=== PATIENT | female | born 1945 | race Caucasian/White ===

== ENCOUNTER 2017-07-07 11:17 | Inpatient (IN) | payer OTHER ==
[~2017-07-07] VITALS: Ht 162.6 cm; Wt 120.0 kg
[~2017-07-07 11:17] MED LIST: GLUCOPHAGE500 MG PO; KLONOPIN0.5 M1 PO; LANTUS 3 M100 UNITS1 SC; METFORMIN HCL500 MG PO; PERCOCET 5/31 TABLET PO; TRIBENZOR 40-11 EAC1 PO
[2017-07-07 11:48] LABS: EOSINOPHIL (%) 0.9 % (0-5); EOSINOPHIL COUNT 0.1 K/uL (0-0.3); HEMATOCRIT 40.9 % (36.0-46.0); IMMATURE GRANULOCYTE (%) 0.3 % (0.0-0.7); INSTRUMENT ABS NEUTROPHIL CT 4.6 K/uL; LYMPHOCYTE COUNT 1.4 K/uL (1.0-2.8); MCH 29.8 PG (29.0-34.0); MCHC 32.8 G/DL (30.0-36.0); MCV 90.9 FL (83-99); MONOCYTE (%) 7.3 % (3-12); MONOCYTE COUNT 0.5 K/uL (0-0.8); NEUTROPHIL (%) 69.9 % (45-76); NEUTROPHIL COUNT 4.6 K/uL (1.8-6.4); PLATELET COUNT 242 K/uL (156-360); RBC DIS.WIDTH-CV 13.4 % (11.8-14.6); RBC DIS.WIDTH-SD 44.8 % (39-53); WHITE BLOOD COUNT 6.6 K/uL (4.1-10.2)
[2017-07-07 11:54] LABS: INTER. NORMALIZED RATIO 1.1; PROTHROMBIN TIME 12.5 SEC (10.2-12.9)
[2017-07-07 11:57] LABS: PTT 25.4 SEC (25-37)
[2017-07-07 12:05] LABS: CHLORIDE 106 mEq/L (99-109); SODIUM 139 mEq/L (136-147)
[2017-07-07 12:06] LABS: GLUCOSE 315 mg/dL (70-99)
[2017-07-07 12:08] LABS: ANION GAP 10 MEQ/L (2-14)
[2017-07-07 12:09] LABS: TROP-I INTERPRETATION NEGATIVE; TROPONIN-I < 0.01 ng/mL (0.0-0.30)
[2017-07-07 12:10] LABS: GFR ESTIMATE (CALCULATED) 52 mL/min/
[2017-07-07 12:11] LABS: UREA NITROGEN (BUN) 21 mg/dL (9-23)
[2017-07-07] MEDS ORDERED: VALSARTAN160 MG PO (12:35)
[2017-07-07] MEDS ORDERED: TOPROL XL25 MG PO (12:36)
[2017-07-07] MEDS ORDERED: AMARYL2 MG PO (12:36)
[2017-07-07] MEDS ORDERED: LASIX40 MG PO (12:37)
[2017-07-07 14:35] VITALS: BP 159/91
[2017-07-07 16:42] LABS: POINT-OF-CARE METER ID UU13113781; POINT-OF-CARE USER ID ENVKC36
[2017-07-07 16:49] VITALS: BP 130/58
[2017-07-07 18:49] LABS: TROPONIN-I 5.29 ng/mL (0.0-0.30)
[2017-07-07 18:50] LABS: TROP-I INTERPRETATION POSITIVE
[2017-07-07 19:26] VITALS: BP 136/62
[2017-07-07 21:30] LABS: POINT-OF-CARE METER ID UU13113698
[2017-07-07 23:13] VITALS: BP 150/66
[2017-07-08 01:08] LABS: TROP-I INTERPRETATION POSITIVE
[2017-07-08 01:16] LABS: TROPONIN-I 7.44 ng/mL (0.0-0.30)
[2017-07-08 04:15] VITALS: BP 143/63
[2017-07-08 07:38] VITALS: BP 157/63
[2017-07-08 08:11] LABS: POINT-OF-CARE METER ID UU13113698; POINT-OF-CARE USER ID NUTSLF44
[2017-07-08 09:08] LABS: HEMATOCRIT 35.8 % (36.0-46.0); MCHC 32.4 G/DL (30.0-36.0); MCV 92.5 FL (83-99); PLATELET COUNT 211 K/uL (156-360); RBC DIS.WIDTH-CV 13.7 % (11.8-14.6); RBC DIS.WIDTH-SD 46.6 % (39-53); RED BLOOD COUNT 3.87 M/uL (3.80-5.20); WHITE BLOOD COUNT 5.9 K/uL (4.1-10.2)
[2017-07-08 09:28] LABS: Estimated Average Glucose 163 mg/dL (70-123); HEMOGLOBIN A1c (GLYCOHEMOGLOB) 7.3 % HGB (Below 5.7)
[2017-07-08 11:52] VITALS: BP 168/70
[2017-07-08 13:01] LABS: ALKALINE PHOSPHATASE 98 IU/L (3-129); ANION GAP 13 MEQ/L (2-14); CHLORIDE 112 MEQ/L (99-109); GFR ESTIMATE (CALCULATED) > 59 mL/min/; HDL CHOLESTEROL 42 MG/DL (Desirable>=50); LDL CHOLESTEROL 137 mg/dL (Desirable<100); MAGNESIUM 2.2 mg/dl (1.3-2.7); NON-HDL CHOLESTEROL 161 mg/dL (Desirable<160); POTASSIUM 4.4 MEQ/L (3.7-5.4); SAMPLE HEMOLYSIS CHECK 0; SAMPLE ICTERIC CHECK 0; SAMPLE LIPEMIA CHECK 0; SODIUM 143 MEQ/L (136-147); TOTAL BILIRUBIN 0.5 MG/DL (0.0-1.0); TOTAL CHOLESTEROL 203 mg/dL (Desirable<200); TRIGLYCERIDES 120 MG/DL (Normal: <150); UREA NITROGEN (BUN) 16 mg/dL (9-23)
[2017-07-08 13:03] LABS: GLUCOSE 132 mg/dL (70-99)
[2017-07-08 15:18] VITALS: BP 179/78
[2017-07-08 16:20] LABS: POINT-OF-CARE METER ID UU13113696
[2017-07-08 19:35] LABS: POINT-OF-CARE METER ID UU13113675; POINT-OF-CARE USER ID LABLCH83
[2017-07-08 23:13] VITALS: BP 150/66
[2017-07-09 01:45] LABS: POINT-OF-CARE METER ID UU13113698
[2017-07-09 04:15] VITALS: BP 143/63
[2017-07-09 05:56] LABS: EOSINOPHIL (%) 0.1 % (0-5); IMMATURE GRANULOCYTE (%) 0.7 % (0.0-0.7); IMMATURE GRANULOCYTE COUNT 0.1 K/uL; INSTRUMENT ABS NEUTROPHIL CT 5.5 K/uL; MCH 30.9 PG (29.0-34.0); MCHC 33.8 G/DL (30.0-36.0); MCV 91.6 FL (83-99); MEAN PLAT.VOLUME 10.3 uM^3 (9.5-12.4); MONOCYTE (%) 5.6 % (3-12); MONOCYTE COUNT 0.4 K/uL (0-0.8); NEUTROPHIL (%) 79.6 % (45-76); NEUTROPHIL COUNT 5.5 K/uL (1.8-6.4); PLATELET COUNT 229 K/uL (156-360); RBC DIS.WIDTH-CV 13.7 % (11.8-14.6); RBC DIS.WIDTH-SD 46.4 % (39-53); RED BLOOD COUNT 4.04 M/uL (3.80-5.20); WHITE BLOOD COUNT 6.9 K/uL (4.1-10.2)
[2017-07-09 06:12] LABS: ALKALINE PHOSPHATASE 96 IU/L (3-129); ANION GAP 9 MEQ/L (2-14); CHLORIDE 109 MEQ/L (99-109); GFR ESTIMATE (CALCULATED) > 59 mL/min/; GLUCOSE 172 mg/dL (70-99); POTASSIUM 3.7 MEQ/L (3.7-5.4); SAMPLE HEMOLYSIS CHECK 0; SAMPLE ICTERIC CHECK 0; SAMPLE LIPEMIA CHECK 0; SODIUM 139 MEQ/L (136-147); TOTAL BILIRUBIN 0.5 MG/DL (0.0-1.0); UREA NITROGEN (BUN) 11 mg/dL (9-23)
[2017-07-09 07:37] VITALS: BP 126/60
[2017-07-09 07:47] LABS: POINT-OF-CARE METER ID UU13113698; POINT-OF-CARE USER ID ENVKC36
[2017-07-09 11:49] LABS: POINT-OF-CARE METER ID UU13113698; POINT-OF-CARE USER ID ENVKC36
[2017-07-09] MEDS ORDERED: BRILINTA90 MG PO (11:51)
[2017-07-09] MEDS ORDERED: NITROSTAT0.4 MG SL (11:51)
[2017-07-09] MEDS ORDERED: ASPIR-LOW81 MG PO (11:53)
[2017-07-09] MEDS ORDERED: LANTUS 3 M100 UNITS1 SC (12:01)
[2017-07-09 12:16] VITALS: BP 163/74
[2017-07-09 16:35] LABS: POINT-OF-CARE METER ID UU13113698; POINT-OF-CARE USER ID ENVKC36
[2017-07-09 16:41] VITALS: BP 169/74
[2017-07-09 17:44] VITALS: BP 151/67
== END 2017-07-09 18:24 | disposition home or self-care (01) | DRG 246 ==
LOC: EME 11:17 → EDOF 12:41 → 4EAST 12:41 → ENRESERV 12:45 → EDOF 12:57 → ENRESERV 13:32 → 4EAST 14:34
PROVIDERS: Emergency Medicine; Hospitalist; Internal Medicine; Physician Assistant
PROC: 027034Z Dilation of Coronary Artery, One Artery with Drug-eluting Intraluminal Device, Percutaneous Approach (ICD-10-PCS; principal; 2017-07-07)
PROC: B2111ZZ Fluoroscopy of Multiple Coronary Arteries using Low Osmolar Contrast (ICD-10-PCS; principal; 2017-07-07)
PROC: 4A023N7 Measurement of Cardiac Sampling and Pressure, Left Heart, Percutaneous Approach (ICD-10-PCS; principal; 2017-07-07)
PROC: B2151ZZ Fluoroscopy of Left Heart using Low Osmolar Contrast (ICD-10-PCS; principal; 2017-07-07)
DX: I48.91 Unspecified atrial fibrillation (principal); I21.4 Non-ST elevation (NSTEMI) myocardial infarction; E11.65 Type 2 diabetes mellitus with hyperglycemia; Z79.4 Long term (current) use of insulin; F41.9 Anxiety disorder, unspecified; I10 Essential (primary) hypertension; E78.5 Hyperlipidemia, unspecified; E66.9 Obesity, unspecified; E66.3 Overweight; Z68.41 Body mass index [BMI] 40.0-44.9, adult; I87.8 Other specified disorders of veins; Z79.84 Long term (current) use of oral hypoglycemic drugs; I70.0 Atherosclerosis of aorta; I25.10 Atherosclerotic heart disease of native coronary artery without angina pectoris; I87.2 Venous insufficiency (chronic) (peripheral)
CPT/HCPCS: 71010; 80048; 80053; 80061; 82948; 83036; 83735; 83880; 84443; 84484; 85025; 85027; 85347; 85610; 85730; 90686; 93005; 93306; 99281; 99285; C1725; C1769; C1874; C1887; J0360; J0583; J1644; J1650; J1815; J2250; J2405; J2765; J3010; J3246; J7030; J7050